=== PATIENT | male | born 1955 | race Caucasian/White ===

== ENCOUNTER → 2020-10-05 | Outpatient (CLI) | payer OTHER ==
[~2020-10-05] MED LIST: PREDNISONE 50 M50 MG PO
== END ==
LOC: CT 12:33
DX: J38.01 Paralysis of vocal cords and larynx, unilateral (principal); R05 Cough; R13.10 Dysphagia, unspecified; H70.93 Unspecified mastoiditis, bilateral
CPT/HCPCS: 70491; 71260; Q9963; Q9967

== ENCOUNTER → 2022-04-30 | Outpatient (CLI) | payer OTHER | LOC: EXRD 14:30 | DX: R42 Dizziness and giddiness (principal); I65.23 Occlusion and stenosis of bilateral carotid arteries | CPT/HCPCS: 93880 ==